=== PATIENT | female | born 1970 | race Caucasian/White ===

== ENCOUNTER 2019-12-12 17:07 | Inpatient (IN) | payer MEDICARE, OTHER ==
[~2019-12-12 17:07] MED LIST: ALPRAZOLAM2 MG ORAL; CYCLOBENZAPRINE10 MG ORAL; PERCOCET 7.5-31 EACH ORAL; ZOLPIDEM TARTRA10 MG ORAL
[2019-12-12] MEDS ORDERED: Omnipaque-300 100ml vial INJ PRN (17:15)
[2019-12-12] MEDS ORDERED: fentaNYL 100 mcg/2 mL IV ONE (17:30)
[2019-12-12] MEDS ORDERED: cefTRIAXone 1 GM in D5W 55 ML IVPB ONE (20:00)
[2019-12-12] MEDS ORDERED: ZOFRAN4 M3 ORAL (20:42)
[2019-12-12] MEDS ORDERED: OXYCODONE HCL20 M1 ORAL (20:42)
[2019-12-12] MEDS ORDERED: Cyclobenzaprine 10mg Tab ORAL PRN (21:00)
[2019-12-12] MEDS: oxyCODONE 5mg IR tab ORAL PRN (21:21)
[2019-12-12] MEDS: D5 1/2NS w/KCl 20mEq 1,000 ML IV SCH (22:20)
[2019-12-13] MEDS: D5 1/2NS w/KCl 20mEq 1,000 ML IV SCH ×3 (05:22→20:17)
[2019-12-13] MEDS: oxyCODONE 5mg IR tab ORAL PRN ×2 (05:23→11:11)
[2019-12-13] MEDS: ALPRAZolam 0.5mg tab ORAL SCH ×3 (08:58→17:25)
[2019-12-13] MEDS ORDERED: Vitamin B12 1000mcg/ml Inj IM SCH (13:45)
[2019-12-13] MEDS: HYDROmorphone 2mg tab ORAL PRN ×2 (15:56→20:16)
[2019-12-13] MEDS: Iron Sucrose 100 MG in NS 55 ML IVPB SCH (20:23)
[2019-12-14] MEDS: HYDROmorphone 2mg tab ORAL PRN ×3 (06:03→20:45)
[2019-12-14] MEDS: ALPRAZolam 0.5mg tab ORAL SCH ×3 (08:21→17:26)
[2019-12-14] MEDS: D5 1/2NS w/KCl 20mEq 1,000 ML IV SCH (15:49)
[2019-12-14] MEDS: Iron Sucrose 100 MG in NS 55 ML IVPB SCH (20:35)
[2019-12-14] MEDS: Zolpidem 5mg tab ORAL PRN (21:54)
[2019-12-15] MEDS: HYDROmorphone 2mg tab ORAL PRN ×2 (05:44→11:15)
[2019-12-15] MEDS: ALPRAZolam 0.5mg tab ORAL SCH ×3 (08:26→17:30)
[2019-12-15] MEDS: D5 1/2NS w/KCl 20mEq 1,000 ML IV SCH ×2 (13:34→14:39)
[2019-12-15] MEDS ORDERED: Polyethylene Glycol 238gm bottle ORAL SCH (14:00)
[2019-12-15] MEDS: Iron Sucrose 100 MG in NS 55 ML IVPB SCH (21:07)
[2019-12-15] MEDS: Zolpidem 5mg tab ORAL PRN (21:24)
[2019-12-16] MEDS: D5 1/2NS w/KCl 20mEq 1,000 ML IV SCH ×3 (04:56→19:12)
[2019-12-16] MEDS: HYDROmorphone 2mg tab ORAL PRN ×3 (06:41→21:34)
[2019-12-16] MEDS: ALPRAZolam 0.5mg tab ORAL SCH ×3 (09:31→17:25)
[2019-12-16] MEDS ORDERED: Lidocaine 1% MPF 10mg/ml 5ml ONE (13:00)
[2019-12-16] MEDS ORDERED: NS 500ML IVPB ONE (13:12)
[2019-12-16] MEDS ORDERED: fentaNYL 100 mcg/2 mL IV PRN (13:30)
[2019-12-16] MEDS ORDERED: Midazolam 2mg/2ml Inj IVP PRN (13:30)
[2019-12-16] MEDS ORDERED: Atropine Inj 1mg/10ml Syr IV PRN (13:30)
[2019-12-16] MEDS ORDERED: DiphenhydrAMINE 50mg/ml Inj IVP PRN (13:30)
[2019-12-16] MEDS: Iron Sucrose 100 MG in NS 55 ML IVPB SCH (21:33)
[2019-12-16] MEDS: Zolpidem 5mg tab ORAL PRN (21:34)
[2019-12-17] MEDS: D5 1/2NS w/KCl 20mEq 1,000 ML IV SCH (04:24)
[2019-12-17] MEDS: HYDROmorphone 2mg tab ORAL PRN (06:21)
[2019-12-17] MEDS: ALPRAZolam 0.5mg tab ORAL SCH ×3 (08:45→17:54)
[2019-12-17] MEDS ORDERED: Heplock Flush 100 units/ml 3 ml syr IV SCH (12:00)
[2019-12-17] MEDS ORDERED: ZOFRAN4 M3 ORAL (18:53)
[2019-12-17] MEDS ORDERED: OXYCODONE-ACET1 EAC5 ORAL (18:54)
== END 2019-12-17 19:50 | disposition home or self-care (01) | DRG 395 ==
DX: K43.9 Ventral hernia without obstruction or gangrene (principal); Z88.6 Allergy status to analgesic agent; Z88.0 Allergy status to penicillin; Z43.2 Encounter for attention to ileostomy; M54.9 Dorsalgia, unspecified; Z85.42 Personal history of malignant neoplasm of other parts of uterus; Z85.43 Personal history of malignant neoplasm of ovary; G89.4 Chronic pain syndrome